=== PATIENT | male | born 1975 | race Caucasian/White ===

== ENCOUNTER 2019-05-12 16:49 | Inpatient (IN) ==
[2019-05-27 15:53] VITALS: BP 91/57
== END 2019-05-27 17:38 | disposition home health service (06) | DRG 673 ==
LOC: ED 16:49 → 3N 20:57 → SUATTDRO 20:57 → EDIPHOLD 22:43 → 2N 23:36
PROVIDERS: ATTEND Internal Medicine

== ENCOUNTER 2019-07-03 11:16 | Observation (INO) ==
[2019-07-03] MEDS ORDERED: NS 1,000 ML IV ONE (11:43)
[2019-07-03] MEDS ORDERED: FENTANYL IV ONE (11:44)
[2019-07-03] MEDS ORDERED: PROTONIX 80 MG in NS 80 ML IV ONE (11:44)
[2019-07-03] MEDS ORDERED: ZOFRAN IV ONE (11:44)
[2019-07-03] MEDS ORDERED: PROTONIX 80 MG in NS 80 ML IV SCH (11:45)
[2019-07-03] MEDS ORDERED: LEVAQUIN 500 MG/D5W 500 MG/100 ML IVPB IV ONE (11:46)
--- NOTE | 2019-07-03 11:59 | Diag Imaging Result Doc PS360 ---
CHEST-1 VIEW - 07/03/2019 INDICATION: POSSIBLE SEPSIS COMPARISON: 06/26/2019 FINDINGS: Stable bilateral central lines. Lung volumes are even lower, now critically low. There is worsening in the right basilar consolidation due to infiltrate and/or atelectasis. There is probably also a trace right pleural effusion. There are numerous pulmonary nodules bilaterally. Heart size is normal. IMPRESSION: Lower lung volumes. Worsening airspace opacification of the right lung base. Electronically signed by Brannon Ozuna 07/03/2019 11:56 AM
[2019-07-03 12:44] LABS: BASO# 0.09 X1000 (0.0-0.2); BASO% 0.2 % (0.0-0.8); EOS# 0.01 X1000 (0.0-0.7); HEMATOCRIT 25.8 % (42.0-52.0); HEMOGLOBIN 7.8 g/dL (14.0-18.0); IMM GRAN# 2.26 X1000 (0.0-0.04); IMM GRAN% 5.9 % (0.0-0.5); LYMPH% 3.7 % (20.5-51.1); MCH 30.8 PG (27-31); MCHC 30.2 g/dL (33-37); MONO# 4.03 X1000 (0.11-0.59); MONO% 10.6 % (1.7-9.3); MPV 12.3 FL (7.4-10.4); NEUT# 30.22 X1000 (1.4-6.5); NEUT% 79.6 % (42.2-75.2); PLT 245 X1000 (130-400); RBC 2.53 XMIL (4.7-6.1); RDW 21.7 % (11.5-14.5); WBC 38.01 X1000 (4.8-10.8)
[2019-07-03] MEDS ORDERED: VANCOMYCIN IV PER PHARMACY MISC SCH (13:15)
[2019-07-03 13:21] LABS: ALB/GLOB RATIO 0.8; ALBUMIN 1.9 g/dL (3.5-5.0); CALCIUM 10.2 mg/dL (8.8-10.2); POTASSIUM 4.9 mmol/L (3.5-5.1); TOTAL BILIRUBIN 14.96 mg/dL (0.20-1.00); TOTAL PROTEIN 4.3 g/dL (6.3-8.3)
[2019-07-03 13:30] LABS: INR 1.37; PROTIME 17.1 Seconds (11.0-16.0)
[2019-07-03 13:31] LABS: PTT 44.5 Seconds (22.3-41.8)
[2019-07-03] MEDS ORDERED: LACTULOSE PO ONE (13:44)
[2019-07-03 14:00] LABS: HYPOCHROM 2+; MONO 2 % (1-9); SEGS 94 % (42-75); TARGET CELLS OCCASIONAL
[2019-07-03] MEDS ORDERED: VANCOMYCIN 1 GM/NS 1 GM/250 ML IVPB IV ONE (14:00)
--- NOTE | 2019-07-03 14:03 | PROVIDER DOCUMENTATION ---
This chart was entered by Sandra Orosco Scribe, acting as scribe for Travis Henning MD. HPI-Abdominal Pain/GI Problem - General Chief Complaint: SEPSIS ALERT - D Stated Complaint: VOMITING BLOOD,CANCER Time Seen by Provider: 07/03/19 11:31 Source: patient, family () Allergies/Adverse Reactions: Patient Allergies Allergy/AdvReac Type Severity Reaction Status Date / Time amoxicillin trihydrate * Allergy RASH Verified 05/12/19 17:20 [From Augmentin] clindamycin Allergy RASH Verified 05/12/19 17:20 ferric carboxymaltose Allergy Unknown Verified 05/12/19 17:20 [From Injectafer] levoleucovorin Allergy Unknown Verified 05/12/19 17:20 Penicillins Allergy RASH Verified 05/12/19 17:20 potassium clavulanate * Allergy RASH Verified 05/12/19 17:20 [From Augmentin] Home Medications: Home Medication List Medication Instructions Recorded Confirmed Last Taken Type Iron,Carbonyl [Feosol] 65 mg PO BID 10/09/17 05/12/19 05/11/19 History Lactobacillus Combination No.4 1 each PO DAILY 10/09/17 05/12/19 05/11/19 Histor y [Probiotic] Benzocaine/Menthol Lozenge 1 ea MT Q6H PRN PRN box 05/27/19 Unknown Rx [Chloraseptic Sore Throat Lozenge] Oxycodone E.r. [Oxycontin] 10 mg PO Q6H PRN #30 tab 05/27/19 Unknown Rx Pantoprazole [Protonix] 40 mg PO BID #90 tab 05/27/19 Unknown Rx Polyethylene Glycol 3350 [Miralax] 17 gm PO BID powder, packet 05/27/19 Unknown Rx Promethazine [Phenergan] 25 mg PO Q6H PRN PRN #30 tab 05/27/19 Unknown Rx - History of Present Illness-ABD Nature of Presenting Problems: Patient is a 44 year old male who presents with vomiting coffee ground emesis. reports patient started having coffee ground emesis this morning. also reports patient having pink stool in colostomy this morning. History of colon cancer with mets to liver. Patient states having generalized body aches. Severity in ED: reports: mild Onset/Duration: reports: this morning Timing: reports: still present Activities at Onset: reports: light activity Associated Symptoms: reports: muscle aches (generalized), vomiting Dark Stools Present?: reports: other (pink stool in colostomy) Emesis Description: reports: coffee grounds Bruising or Bleeding Gums?: No Similar Symptoms Previously?: Yes Recently seen or treated by another doctor?: Yes Review of Systems - Adult - REVIEW OF SYSTEMS - ADULT Constitutional: reports: no symptoms reported Eyes: reports: no symptoms reported Ears, Nose, Mouth & Throat: reports: no symptoms reported Cardiovascular: reports: no symptoms reported Respiratory: reports: no symptoms reported Gastrointestinal: reports: see HPI, hematemesis (coffee grounds), other (pink stool in colostomy). denies: diarrhea Genitourinary: reports: no symptoms reported Musculoskeletal: reports: see HPI, muscle aches (generalized). denies: back pain, neck pain Integumentary: reports: no symptoms reported Neurological: reports: no symptoms reported Psychiatric: reports: no symptoms reported Endocrine: reports: no symptoms reported Hematologic/Lymphatic: reports: no symptoms reported Allergic/Immunologic: reports: no symptoms reported All Other Systems: Reviewed and Negative Past History - Adult - PAST MEDICAL HISTORY-ADULT Review of Records: reports: Old Records Reviewed, Nursing Assessment Review, Medications Reviewed, Social history reviewed & non-contributory. Major Childhood Illnesses: reports: denies history Cardiovascular: reports: denies history Respiratory: reports: denies history Gastrointestinal: reports: cancer (colon and liver) Obstetrical/Gynecological: reports: denies history Genitourinary: reports: kidney disease Musculoskeletal: reports: denies history Neurological: reports: denies history Endocrine/Immune: reports: Diabetes Other Conditions: reports: denies history - PRIOR SURGERIES/PROCEDURES Surgical/Procedure History: reports: reviewed, not pertinent - IMMUNIZATION STATUS Childhood Immunizations: See Nurse Assessment Flu Vaccine: See Nurse Assessment - FAMILY HISTORY Family History: reviewed, not pertinent - SOCIAL HISTORY Smoking: denies Substance Use: denies Living Situation: family Physical Exam-General - PHYSICAL EXAM-ADULT Initial Vital Signs Reviewed: Yes - CONSTITUTIONAL General Appearance: alert, no apparent distress. negative: lethargic - EYES Eyes: scleral icterus. negative: sclera injected, sunken eyes - HEAD, EARS, NOSE, MOUTH & THROAT HENMT: normocephalic/atraumatic, other (dry mucous membranes). negative: angioedema - RESPIRATORY Respiratory: lungs clear, normal breath sounds, other (dialysis port to right side chest. port to left side chest.). negative: respiratory distress, rhonchi, wheezing - CARDIOVASCULAR Cardiovascular: no edema, tachycardia. negative: systolic murmur - GASTROINTESTINAL (ABDOMEN) Abdominal Exam: distended, guarding, tenderness (diffuse). negative: rigid - MUSCULOSKELETAL Extremity: non-tender, other (3 + pitting edema to bilateral lower extremities.) . negative: erythema - SKIN Integumentary: warm/dry, jaundice, other (poor skin turgor). negative: diaphoresis Progress - PLAN OF CARE/RESULTS Progress/Plan/Lab Results: Vital Signs - 8 hr 07/03/19 11:22 Temperature 97.5 F L Pulse Rate 113 H Respiratory Rate 22 Blood Pressure 75/49 O2 Sat by Pulse Oximetry 96 Orders Category Date Time Status Cardiac Monitoring DIRECTED Care 07/03/19 11:31 Active IV Insertion ORDERED Care 07/03/19 11:31 Active Notify MD of + Sepsis Screen NOW Care 07/03/19 11:31 Active Notify Physician As Ordered Care 07/03/19 11:31 Active Hospice Care Consult [OM.CSS] Stat Cons 07/03/19 11:45 Active CHEST-1 VIEW [RAD] Stat Exams 07/03/19 11:31 Ordered AMMONIA [CHEM] Stat Lab 07/03/19 11:43 Uncollected BLOOD CULTURE [BLDCUL] Stat Lab 07/03/19 11:31 Uncollected CBC WITH DIFF [HEME] Stat Lab 07/03/19 11:31 Uncollected CK PROFILE [SP CHEM] Stat Lab 07/03/19 11:31 Uncollected COMPREHENSIVE METABOLIC PANEL [CHEM] Stat Lab 07/03/19 11:31 Uncollected LACTATE, PLASMA [CHEM] Q3H Lab 07/03/19 11:45 Uncollected LACTATE, PLASMA [CHEM] Q3H Lab 07/03/19 14:45 Uncollected LACTATE, PLASMA [CHEM] Q3H Lab 07/03/19 17:45 Uncollected PROTIME WITH INR [COAG] Stat Lab 07/03/19 11:31 Uncollected PTT [COAG] Stat Lab 07/03/19 11:31 Uncollected TROPONIN T Stat Lab 07/03/19 11:31 Uncollected TYPE & SCREEN [BBK] Stat Lab 07/03/19 11:31 Uncollected URINALYSIS W/POSS RFLX CULT [URINALYSIS] Stat Lab 07/03/19 11:31 Uncollected 0.9% Sodium Chloride Inj [Ns] 1,000 ml Med 07/03/19 11:43 Active IV 999 mls/hr 0.9% Sodium Chloride Inj [Ns] 80 ml Med 07/03/19 11:45 Ordered Pantoprazole [Protonix] 80 mg IV 10 mls/hr Fentanyl Med 07/03/19 11:44 Discontinued 25 microgm IV NOW ONE Levofloxacin 500 mg/D5w [Levaquin 500 mg/D5w] Med 07/03/19 11:46 Active 500 mg in 100 ml IV NOW Ondansetron [Zofran] Med 07/03/19 11:44 Discontinued 4 mg IV NOW ONE Pantoprazole [Protonix] Med 07/04/19 11:44 Ordered 40 mg IV Q12H Pantoprazole [Protonix] 80 mg Med 07/03/19 11:44 Active 0.9% Sodium Chloride Inj [Ns] 80 ml IV NOW Oxygen Device Stat Oth 07/03/19 11:31 Active Result Diagrams: 07/03/19 12:02 07/03/19 12:02 - REASSESSMENT Reassessment #1 Time Reassessed: 13:56 Status: improving (Patient initially placed on sepsis protocol, given IVF bolus, IV fentanyl for pain, IV levaquin. Have had multiple discussions at bedside with patient and family about DNR status and hospice care. After several hours, family and patient have requested NO PRESSORS, NO CPR, NO INTUBATION, no DEFIB/CARDIOVERSION. They have made him DNR. Will no order levaphed.) - XRAY 1 XRAY Study: Chest Impression: See EMR Report ( CHEST-1 VIEW - 07/03/2019 INDICATION: POSSIBLE SEPSIS COMPARISON: 06/26/2019 FINDINGS: Stable bilateral central lines. Lung volumes are even lower, now critically low. There is worsening in the right basilar consolidation due to infiltrate and/or atelectasis. There is probably also a trace right pleural effusion. There are numerous pulmonary nodules bilaterally. Heart size is normal. IMPRESSION: Lower lung volumes. Worsening airspace opacification of the right lung base. Electronically signed by Brannon Ozuna 07/03/2019 11:56 AM 07/03/19 1156 Interpreting Physician: Brannon Ozuna MD Dictated Date/Time: 07/03/19 1155 cc: Travis Henning MD; Eagle Boo MD) - CONSULTS/PCP/HOSPITALIST Notification #1 *Consult/PCP/Hospitalist*: Dr. Terrell Time Discussed: 12:34 Reason/Comments: Dr. Henning consulted with Dr. Terrell about patient. #2 Consult: FÁTIMA Velasquez for Hospitalist Time Discussed: 13:59 Reason/Comments: Dr. Henning consulted with Eva about patient Consult Disposition: Will see in ED, Admit Departure - Departure Date of Disposition Decision: 07/03/19 Time of Disposition Decision: 13:59 DIAGNOSIS: Septic shock, Hepatic encephalopathy syndrome, Metastasis from colon cancer, Multisystem organ failure Disposition: ADMITTED INPATIENT 09 Certified Medical Emergency: Emergent Condition: Critical Referrals and Follow-Ups: Eagle Boo MD [Primary Care Provider] - - Critical Care Note This patient required my direct & personal management of CC.: Yes Total Time (mins): 50 Critical Care Statement: This patient required my direct personal management to treat or rule out processes, the absence of which, could potentiallly result in sudden, clinically significant life or limb threatening deterioration. Attestation - Physician/ DEA Attestation Patient care was provided by Advanced Practice Provider:: No The physician spent face to face time with patient:: Yes Advanced Practice Provider documentation review:: Supervising physician onsite and consulted in the evaluation and care of this patient. The physician did have a face to face encounter with the patient. This chart was documented by the indicated scribe, (Sandra Orosco Scribe) and accurately reflects the services I performed and decisions made by me, Travis Henning MD, as attested by the provider's signature.
[2019-07-03] MEDS ORDERED: ZOFRAN IV PRN (14:49)
[2019-07-03] MEDS ORDERED: OXYCONTIN PO PRN (16:42)
[2019-07-03] MEDS ORDERED: MORPHINE IV PRN ×2 (16:44→17:09)
[2019-07-03] MEDS ORDERED: PEPCID IV SCH (16:45)
[2019-07-03] MEDS ORDERED: SODIUM CHLORIDE 0.9% INJ SCH (16:45)
[2019-07-03] MEDS ORDERED: ATIVAN IV ONE (17:07)
[2019-07-03] MEDS ORDERED: VANCOMYCIN 1 GM/NS 1 GM/250 ML IVPB IV SCH (17:15)
[2019-07-03] MEDS ORDERED: OXYCONTIN PO SCH (18:00)
--- NOTE | 2019-07-03 18:21 | HISTORY AND PHYSICAL ---
ADDENDUM: The patient was seen and examined by me [id number]. All the laboratory, vital signs and images were reviewed. The patient presented to the emergency department due to nausea and vomiting. Apparently, he has been coughing some coffee-grounds emesis, and he has been having some different color of his stools through his colostomy this morning. Apparently, he was going to get his dialysis today, but he started vomiting, so they decided to bring him over here to the emergency department. Family members at the bedside. I adjusted the medications with the . After a large conversation, this patient has been placed DO NOT RESUSCITATE level 1. The conversation was for at least 30 minutes. This patient is basically actively dying. PHYSICAL EXAMINATION: On my physical exam, this patient is sleepy, but arousable. He is answering some questions on and off, but he is having respiratory distress. His blood pressure has been dropping. Right now it is in the 50s, and he is tachycardic. The family has requested hospice, but I believe he will in the hospital. He is declining fast. He has decreased breath sounds bilaterally. He has jaundice. His abdomen is distended. Colostomy bag in place. PLAN: We are going to keep him comfortable. I have order some Ativan and morphine. This has been discussed with the . I agree with the rest of the nurse practitioner's assessment and plan. cc: Jae Parikh MD
[2019-07-03 19:36] VITALS: BP 49/28
--- NOTE | 2019-07-03 20:30 | HISTORY AND PHYSICAL ---
CHIEF COMPLAINT: Vomiting blood. HISTORY OF PRESENT ILLNESS: This is a 44-year-old gentleman with a history of diabetes mellitus type 1, metastatic colon cancer with metastasis to the liver and lungs, anemia, and chronic kidney disease. He presents to the emergency room with family members who state that the patient has been nauseated for 2 to 3 days. He started having coffee-ground emesis this morning, as well as pink stools in the colostomy. Shortly after arriving to the emergency room, he did vomit red vomitus along with coffee grounds, as well as have stool in his colostomy, darker pink to red in color. The patient jaundiced and he is confused, having found to have an ammonia of 222, and hemoglobin and hematocrit of 7.8 and 25.8. PAST MEDICAL HISTORY: 1. Colon cancer with metastasis to the lung and liver. 2. Crohn's disease. 3. Diabetes mellitus type 1 with an insulin pump. PAST SURGICAL HISTORY: Sinus surgery, colon resection. SOCIAL HISTORY: He lives with his . He denies alcohol, tobacco, or illicit drug use. ALLERGIES: Amoxicillin, Injectafer, penicillins, Augmentin. HOME MEDICATIONS: A list will be obtained by the nursing staff and once verified, will review and restart as appropriate. REVIEW OF SYSTEMS: Unable to obtain from the patient due to his confusion. PHYSICAL EXAMINATION: GENERAL: This is a 44-year-old gentleman who is lying on the stretcher in the emergency room. He is confused, in no distress. VITAL SIGNS: Blood pressure is 88/60, with a heart rate ranging from 100 to 108, respirations are 16 to 18, temperature is 97.5 degrees, with O2 saturations that are 96 to 100 percent on room air. EYES: Pupils are equal, round, react to light. Sclerae are icteric. HEENT: Head is normocephalic, atraumatic. Mucous membranes are dry. NECK: Supple with trachea midline. CARDIOVASCULAR: Regular rate and rhythm. He is tachycardic. S1 and S2 appreciated. He has no murmur. PULMONARY: Breath sounds are diminished throughout. Chest rises and falls symmetric to respiration. Chest wall is nontender to palpation. GASTROINTESTINAL: Abdomen is soft. It is distended. He is tender diffusely with bowel sounds in all 4 quadrants. SKIN: Jaundiced with poor turgor. EXTREMITIES: He does have bilateral pitting edema from the mid thigh down. LABORATORY AND DIAGNOSTIC DATA: WBC is 38.0, with hemoglobin 7.8, hematocrit 25.8, and platelets of 245,000. Sodium is 130, potassium 4.9, BUN 108, creatinine 5, with a glucose of 158. Total bilirubin is 14.96, with alkaline phosphatase 1193 and ammonia of 22. His plasma lactate is 7.5. Blood cultures are pending. Chest x-ray reveals lower lung volumes worsening airspace, opacification of the right lung base. ASSESSMENT: 1. Hepatic encephalopathy. 2. Metastatic colon cancer to the liver and lungs. 3. Leukocytosis. 4. Hyponatremia. 5. Chronic kidney disease. 6. Gastrointestinal bleed. PLAN: The patient will be admitted to the hospital. He will be placed on telemetry. We will continue with IV hydration, oxygen as needed. Protonix drip was started in the emergency room. We will continue with morphine for pain and Zofran for nausea. While examining the patient, I did have a discussion with the and another male family member regarding the patient's disposition, his code status, and his future. The did state that she and the had discussed this and he felt that he did not want to be placed on a ventilator if there was no chance of coming off. While discussing with the patient, despite being on pressors and IV fluids, his pressure did begin to decrease. His mentation did decrease further, and the did decide to follow his wishes and make him a DNR level 1. We did discuss hospice and comfort measures, and the did ask that hospice be called. Social Work has been notified and are in the process of calling hospice. We will consult Dr. Terrell. I have notified Dr. Alanna Trujillo who is on-call for Dr. Beach, of the patient's condition and will keep her updated. The patient was seen and plan was discussed with Dr. Pastor. Further treatments pending hospital course and family's decision. Dictated by FÁTIMA Richard for Jae Parikh MD cc: FÁTIMA Richard MD
[2019-07-03] MEDS ORDERED: LACTULOSE PO SCH (21:00)
[2019-07-04] MEDS ORDERED: CULTURELLE PO SCH (09:00)
[2019-07-04] MEDS ORDERED: PROTONIX IV SCH (11:44)
== END 2019-07-03 22:30 | disposition expired ==
LOC: ED 11:16 → 1N 20:37 → INTOOBSV 20:37
PROVIDERS: ATTEND Internal Medicine